=== PATIENT | male | born 1965 | race Asian ===

== ENCOUNTER 2019-04-23 12:54 | Day surgery (SDC) | payer OTHER ==
[~2019-04-23] VITALS: Ht 157.5 cm; Wt 59.0 kg
[2019-04-23 13:35] VITALS: Ht 157.5 cm; Wt 59.0 kg
[2019-04-23] MEDS ORDERED: NO MEDS (13:42)
[2019-04-23 14:07] VITALS: BP 137/72; PULSE 75; RESP 16
--- NOTE | 2019-04-23 14:45 | PREAC ---
Date/Time of Note Date/Time of Note DATE: 04/23/19 TIME: 14:44 Anesthesia Eval and Record Evaluation Time Pre-Procedure Interview DATE: 04/23/19 TIME: 14:44 Age 53 Sex male NPO: 8 hrs Preoperative diagnosis OCCULT BLOOD, DIARRHEA Planned procedure COLONOSCOPY WITH BIOPSIES Past Medical History Past Medical History: Includes Infection(s): Hep B Surgery & Anesthesia Issues No known issue Meds Anticoagulation: No Beta Mendoza within 24 hr: No Reason Beta Mendoza not given: Pt. not on B-Mendoza Reported Medications [No Meds] No Conflict Check 04/23/19 Meds reviewed: Yes Allergies Coded Allergies: No Known Allergy (Unverified , 04/23/19) Allergies Reviewed: Yes Labs/Studies Labs Reviewed: Reviewed by anesthesiologist test: N/A Pre-procedure Exam Last vitals Vital Signs Date Temp Pulse Resp B/P (MAP) Pulse Ox O2 O2 Flow FiO2 Time Delivery Rate 04/23/19 97.8 75 16 137/72 99 Room Air 14:07 (93) Airway: Adequate mouth opening, Adequate thyromental dist Mallampati: Mallampati II Teeth: Normal Lung: Normal Heart: Normal ASA Physical Status ASA physical status: 2 Emergency: None Planned Anesthetic General/MAC: MAC Planned Pain Management Parenteral pain med Pre-operative Attestations Prior to commencing anesthesia and surgery, the patient was re-evaluated, there was verification of: *The patient's identity *The results of appropriate recent lab work and preoperative vital signs *The above evaluation not changing prior to induction *Anesthetic plan, risk benefits, alternative and complications discussed with patient/family; questions answered; patient/family understands, accepts and wishes to proceed. Aleksandr Villagomez M.D. Apr 23, 2019 14:44
[2019-04-23] MEDS ORDERED: PROPOFOL 40 ML ONE (15:21)
[2019-04-23] MEDS ORDERED: LIDOCAINE 100 MG SYRINGE ONE (15:21)
--- NOTE | 2019-04-23 15:40 | PAC ---
Date/Time of Note Date/Time of Note DATE: 04/23/19 TIME: 15:40 Post-Anesthesia Notes Post-Anesthesia Note Last documented vital signs Vital Signs Date Temp Pulse Resp B/P (MAP) Pulse Ox O2 O2 Flow FiO2 Time Delivery Rate 04/23/19 97.8 75 16 137/72 99 Room Air 14:07 (93) Activity: WNL Respiratory function: WNL Cardiovascular function: WNL Mental status: Baseline Pain reasonably controlled: Yes Hydration appropriate: Yes Nausea/Vomiting absent: Yes Aleksandr Villagomez M.D. Apr 23, 2019 15:40
== END 2019-04-23 17:49 | disposition home or self-care (01) ==
LOC: GIL 12:54
PROVIDERS: ATTEND Internal Medicine Gastroenterology
DX: Z12.11 Encounter for screening for malignant neoplasm of colon (principal); K64.8 Other hemorrhoids
CPT/HCPCS: 45378; J2001; Z7610